=== PATIENT | female | born 1985 | race Two or more races ===

== ENCOUNTER 2019-05-13 04:54 | Emergency (ER) | payer OTHER ==
[~2019-05-13] VITALS: Ht 162.6 cm; Wt 98.0 kg
[2019-05-13] MEDS ORDERED: LORazepam 2 MG/ML, 1ML IVPush ONE (05:30)
[2019-05-13] MEDS ORDERED: SODIUM CHLORIDE FLUSH 10ML SYR IVF ONE (05:30)
--- NOTE | 2019-05-13 05:51 | NUR ---
PT HERE FOR VAGINAL BLEEDING THAT STARTED AT 0330. PTY IS 18 WEEKS . PT ALSO EXPERIENCING CRAMPING. VSS. LAB AT BEDSIDE. CALL LIGHT IN REACH
[2019-05-13 06:01] LABS: BASOPHILS # (AUTO) 0.02 x10^3/uL (0-0.1); BASOPHILS % (AUTO) 0 % (0-1); EOSINOPHILS # (AUTO) 0.04 x10^3/uL (0-0.4); EOSINOPHILS % (AUTO) 0 % (1-7); LYMPHOCYTES # (AUTO) 2.18 x10^3/uL (1-3.4); LYMPHOCYTES % (AUTO) 12 % (22-44); MD NO; MEAN CORPUSCULAR HEMOGLOBIN 31.2 pg (27.0-34.8); MEAN CORPUSCULAR HGB CONC 33.3 g/dL (32.4-35.8); MEAN CORPUSCULAR VOLUME 93.7 fL (80-100); MEAN PLATELET VOLUME 8.7 fL (7.4-10.4); MONOCYTES # (AUTO) 0.43 x10^3/uL (0.2-0.8); MONOCYTES % (AUTO) 2 % (2-9); NEUTROPHILS # (AUTO) 15.28 x10^3/uL (1.8-6.8); NEUTROPHILS % (AUTO) 85 % (42-75); PLATELET COUNT 286 x10^3/uL (130-400); RED BLOOD COUNT 4.11 x10^6/uL (3.82-5.3); RED CELL DISTRIBUTION WIDTH 13.4 % (9.6-15.2)
[2019-05-13 06:08] LABS: ALBUMIN 2.7 g/dL (3.4-5.0); ANION GAP 7 mmol/L (5-15); CALCIUM 8.5 mg/dL (8.5-10.1); CHLORIDE 109 mmol/L (98-107); INTERNATIONAL NORMALIZED RATIO 1.02 (0.93-1.1); PROTHROMBIN TIME 10.7 Seconds (9.6-11.5)
[2019-05-13 06:11] LABS: CREATININE 0.62 mg/dL (0.55-1.02)
--- NOTE | 2019-05-13 06:19 | NUR ---
PT BACK FROM US. PT RESTING WITH NO NEEDS AT THIS TIME. CALL LIGHT IN REACH
--- NOTE | 2019-05-13 06:55 | NUR ---
received report from [facility]. pt upright on gurney awake & calm, responds approp to staff, NAD, comfort measures provided, SO at BS, call light within reach.
--- NOTE | 2019-05-13 06:56 | NUR ---
REPORT TO DEVIN BRAN
[2019-05-13 08:00] VITALS: BP 113/59
--- NOTE | 2019-05-13 08:04 | NUR ---
pt remains upright on gurney awake & calm, responds approp to staff, NAD, comfort measures provided, family at BS, call light within reach. demise package given to pt, bereavement checklist completed & tubed to L&D, dispo of remains discussed with pt & family as remains were not brought to ED.
[2019-05-13 08:23] VITALS: BP 120/68
[2019-05-13 08:59] VITALS: BP 117/68
--- NOTE | 2019-05-13 08:59 | NUR ---
pt upright on gurney awake & comfortable, responds approp to staff, NAD, comfort measures provided, family at BS, call light within reach.
--- NOTE | 2019-05-13 09:40 | NUR ---
Patient given discharge instructions and they have confirmed that they understand the instructions. Patient ambulatory with steady gait.
== END 2019-05-13 09:41 | disposition home or self-care (01) ==
LOC: ED 05:26
DX: O03.4 Incomplete spontaneous abortion without complication (principal)
CPT/HCPCS: 36415; 76801; 80048; 82040; 85025; 85610; 86850; 86900; 93005; 96372; 99284; J2790

== ENCOUNTER 2019-06-12 09:51 | Day surgery (SDC) | payer OTHER ==
[~2019-06-12] VITALS: Ht 162.6 cm; Wt 98.1 kg
[2019-06-12 10:19] VITALS: BP 147/96
== END 2019-06-12 15:35 | disposition home or self-care (01) ==
LOC: OUT 09:51
PROVIDERS: ATTEND Obstetrics & Gynecology
DX: O03.4 Incomplete spontaneous abortion without complication (principal); D06.9 Carcinoma in situ of cervix, unspecified; I10 Essential (primary) hypertension; E78.5 Hyperlipidemia, unspecified; Z79.890 Hormone replacement therapy; Z79.899 Other long term (current) drug therapy; Z82.49 Family history of ischemic heart disease and other diseases of the circulatory system
CPT/HCPCS: 36415; 57522; 59812; 85025; 86850; 86870; 86900; 86922; 88305; 88307; J0171; J0330; J0690; J1100; J1885; J2250; J2405; J2704; J2710; J3010; J3490; J7120; 86923; J2210; J2590

== ENCOUNTER 2019-11-22 07:57 | Emergency (ER) | payer OTHER ==
[~2019-11-22] VITALS: Ht 162.6 cm; Wt 101.2 kg
[~2019-11-22 07:57] MED LIST: LABE100T6 PO; LEVO112T4 PO; MELA5TAB14 PO; PRENATAL PO
[2019-11-22] MEDS ORDERED: METOCLOPRAMIDE 5 MG/ML, 2ML IVPush ONE (08:30)
[2019-11-22] MEDS ORDERED: DIPHENHYDRAMINE 50 MG/ML, 1ML IVPush ONE (08:30)
[2019-11-22] MEDS ORDERED: SODIUM CHLORIDE 0.9% 1,000ML IVBOLUS ONE (08:30)
[2019-11-22 08:55] LABS: MEAN CORPUSCULAR HEMOGLOBIN 26.6 pg (27.0-34.8); MEAN CORPUSCULAR HGB CONC 32.1 g/dL (32.4-35.8); MEAN CORPUSCULAR VOLUME 82.6 fL (80-100); MEAN PLATELET VOLUME 8.6 fL (7.4-10.4); PLATELET COUNT 376 x10^3/uL (130-400); RED BLOOD COUNT 5.38 x10^6/uL (3.82-5.3); RED CELL DISTRIBUTION WIDTH 21.7 % (9.6-15.2)
[2019-11-22 08:59] LABS: ALBUMIN 3.3 g/dL (3.4-5.0); ANION GAP 6 mmol/L (5-15); CALCIUM 8.8 mg/dL (8.5-10.1); CHLORIDE 108 mmol/L (98-107); CREATININE 0.75 mg/dL (0.55-1.02)
[2019-11-22 09:04] LABS: FREE T4 (FREE THYROXINE) 0.93 ng/dL (0.76-1.46)
[2019-11-22] MEDS ORDERED: DIPHENHYDRAMINE 50 MG/ML, 1ML ONE (09:12)
[2019-11-22] MEDS ORDERED: METOCLOPRAMIDE 5 MG/ML, 2ML ONE (09:12)
[2019-11-22 09:16] LABS: MD YES
[2019-11-22 09:17] LABS: BAND#(MANUAL) 0.18 x10^3/uL; BANDS%(MANUAL) 1 % (0-7); EOS#(MANUAL) 0.18 x10^3/uL (0.0-0.4); EOS% (MANUAL) 1 % (1-7); LYMPH#(MANUAL) 4.16 x10^3/uL (1-3.4); LYMPHS% (MANUAL) 23 % (22-44); MONOS#(MANUAL) 1.27 x10^3/uL (0.3-2.7); MONOS% (MANUAL) 7 % (2-9); SEG#(MANUAL) 12.31 x10^3/uL (1.8-6.8); SEGS% (MANUAL) 68 % (42-75)
[2019-11-22 09:19] LABS: <PLATELET ESTIMATE> ADEQUATE; <PLT MORPHOLOGY> NORMAL PLT MORPH; ANISOCYTOSIS 1+
[2019-11-22 09:55] LABS: MICROSCOPIC INDICATED
[2019-11-22 10:04] LABS: CULTURE INDICATED? NO
--- NOTE | 2019-11-22 10:06 | NUR ---
BALLESTEROS IMPROVED SINCE MEDICATED. VS UPDATED. AWAITING UA
--- NOTE | 2019-11-22 10:58 | NUR ---
Task RN: Discharge instructions discussed with patient including when to return to emergency department, prescription provided with instruction for use, patient verbalizes understanding. Patient ambulates with steady gait, dresses independently. Patient states pain is now controlled 12/14
[2019-11-22 11:00] VITALS: BP 131/75
== END 2019-11-22 11:02 | disposition home or self-care (01) ==
LOC: ED 08:34
DX: G44.219 Episodic tension-type headache, not intractable (principal); I10 Essential (primary) hypertension
CPT/HCPCS: 36415; 80048; 81001; 82040; 84439; 84443; 84703; 85025; 96374; 96375; 99283; J1200; J2765; J7030